=== PATIENT | female | born 1995 | race Caucasian/White ===

== ENCOUNTER 2017-08-13 01:42 | Emergency (ER) | payer OTHER ==
[2017-08-13 02:11] VITALS: BP 150/67; PULSE 106; TEMP 98.4; BMI 31.1
[2017-08-13] MEDS ORDERED: METOCLOPRAMIDE HCL INJECTION 10 MG/2 ML VIAL IVPUSH ONE (02:53)
[2017-08-13] MEDS ORDERED: SODIUM CHLORIDE 1,000 ML IV STA (02:53)
--- NOTE | 2017-08-13 02:53 | PDOC ---
History of Present Illness - History of Present Illness Initial Comments: 08/13/17 02:53 The patient is a 22 year old female who is approximately 33 weeks who presents to the ED complaining of 2 days of low-grade fever, body aches, malaise , nasal congestion, and cough. Also reports associated post-tussive vomiting. She was cleared by L&d prior to presenting to the ED. <Melva Henry - Last Filed: 08/13/17 02:53> - General History Source: Patient <[email or web address] - Last Filed: 08/13/17 19:15> - General Chief Complaint: Cold Symptoms Stated Complaint: FLU LIKE SYMPTOMS/ 33 WEEKS Time Seen by Provider: 08/13/17 02:52 Past History <Melva Henry - Last Filed: 08/13/17 02:53> - Past Medical History Cardiac Disorders: Yes (Pericarditis) COPD: No - Reproductive History (#): 2 Para: 1 Therapeutic (s) & number: Yes - Immunization History Immunization Up to Date: Yes - Suicide/Smoking/Psychosocial Hx Smoking History: Never smoked Have you smoked in the past 12 months: No Number of Cigarettes Smoked Daily: 4 Information on smoking cessation initiated: No Hx Alcohol Use: No Drug/Substance Use Hx: No Substance Use Type: None <Lucien Bloom - Last Filed: 08/13/17 19:15> - Past Medical History Allergies/Adverse Reactions: Allergies Allergy/AdvReac Type Severity Reaction Status Date / Time trimethoprim [From Bactrim] Allergy Intermediate Hives Verified 08/13/17 02:03 sulfamethoxazole Allergy Verified 08/13/17 02:03 [From Bactrim] Home Medications: Ambulatory Orders Pnv No.95/Ferrous Fum/Folic AC [ Vitamin Tablet] 1 tab PO DAILY Metoclopramide HCl [Reglan -] 10 mg PO QID #28 tablet 08/13/17 Oseltamivir Phosphate [Tamiflu -] 75 mg PO BID #10 capsule 08/13/17 Review of Systems - Review of Systems Able to Perform ROS?: Yes Comments:: 08/13/17 02:54 GENERAL/CONSTITUTIONAL: No fever or chills. No weakness. HEAD, EYES, EARS, NOSE AND THROAT: No change in vision. No ear pain or discharge. No sore throat. CARDIOVASCULAR: No chest pain or shortness of breath. RESPIRATORY: No cough, wheezing, or hemoptysis. GASTROINTESTINAL: No nausea, vomiting, diarrhea or constipation. GENITOURINARY: No dysuria, frequency, or change in urination. MUSCULOSKELETAL: No joint or muscle swelling or pain. No neck or back pain. SKIN: No rash NEUROLOGIC: No headache, vertigo, loss of consciousness, or change in strength/ sensation. ENDOCRINE: No increased thirst. No abnormal weight change. HEMATOLOGIC/LYMPHATIC: No anemia, easy bleeding, or history of blood clots. ALLERGIC/IMMUNOLOGIC: No hives or skin allergy. <Melva Henry - Last Filed: 08/13/17 02:53> *Physical Exam - Vital Signs Last Vital Signs Temp Pulse Resp BP Pulse Ox 98.4 F 106 H 20 150/67 100 08/13/17 02:04 08/13/17 02:04 08/13/17 02:04 08/13/17 02:04 08/13/17 02:04 - Physical Exam Comments: 08/13/17 02:54 GENERAL: Awake, alert, and fully oriented. Mildly anxious appearing. HEAD: No signs of trauma EYES: PERRLA, EOMI, sclera anicteric, conjunctiva clear ENT: Auricles normal inspection, nares patent. Moist mucosa NECK: Normal ROM, supple, no JVD, or masses LUNGS: Breath sounds equal, clear to auscultation bilaterally. No wheezes, and no crackles HEART: Regular rate and rhythm, normal S1 and S2, no murmurs, rubs or gallops ABDOMEN: +Gravid. Soft, normoactive bowel sounds. No guarding, no rebound. No masses EXTREMITIES: Normal range of motion, no edema. No clubbing or cyanosis. No cords, erythema, or tenderness NEUROLOGICAL: Alert and oriented x 3. Moves all extremities. Face is symmetric. SKIN: Warm, Dry, normal turgor, no rashes or lesions noted. <Melva Henry - Last Filed: 08/13/17 02:53> - Vital Signs Last Vital Signs Temp Pulse Resp BP Pulse Ox 98.4 F 106 H 20 150/67 100 08/13/17 02:04 08/13/17 02:04 08/13/17 02:04 08/13/17 02:04 08/13/17 02:04 <Lucien Bloom - Last Filed: 08/13/17 19:15> ED Treatment Course - LABORATORY CBC & Chemistry Diagram: 08/13/17 03:00 08/13/17 03:00 <Lucien Bloom - Last Filed: 08/13/17 19:15> Medical Decision Making - Medical Decision Making 08/13/17 19:14 Dr. Bloom: The scribe's documentation has been prepared under my direction and personally reviewed by me in its entirery. I confirm that the note above accurately reflects all work, treatment, procedures, and medical decision making performed by me. <Lucien Bloom - Last Filed: 08/13/17 19:15> *DC/Admit/Observation/Transfer - Attestations Scribe Attestion: 08/13/17 02:55 Documentation prepared by Melva Henry, acting as medical assisting instructor for Lucien Bloom DO. <Melva Henry - Last Filed: 08/13/17 02:53> - Discharge Dispostion Admit: No <Lucien Bloom - Last Filed: 08/13/17 19:15> Diagnosis at time of Disposition: Nausea, Influenza - Discharge Dispostion Disposition: HOME Condition at time of disposition: Stable - Prescriptions Prescriptions: Metoclopramide HCl [Reglan -] 10 mg PO QID #28 tablet Oseltamivir Phosphate [Tamiflu -] 75 mg PO BID #10 capsule - Patient Instructions Printed Discharge Instructions: DI for Influenza -- Adult, DI for Nausea -- Adult
[2017-08-13] MEDS ORDERED: ACETAMINOPHEN 325 MG TABLET (FP) PO ONE (02:54)
[2017-08-13] MEDS ORDERED: METOCLOPRAMIDE HCL INJECTION 10 MG/2 ML VIAL ONE (02:56)
[2017-08-13] MEDS ORDERED: ACETAMINOPHEN 325 MG TABLET (FP) ONE (02:56)
[2017-08-13 03:13] LABS: BASO % 0.4 % (0-2.0); EOS % 0.1 % (0-4.5); HEMOGLOBIN 10.5 GM/dL (10.7-15.3); LYMPH % 16.6 % (8-40); MCHC 33.8 g/dl (32.0-36.0); MEAN CELL VOLUME 85.8 fl (80-96); MEAN PLT VOLUME 7.5 fl (7.5-11.1); MONO % 8.7 % (3.8-10.2); NEUT % 74.2 % (42.8-82.8); PLATELET COUNT 252 K/MM3 (134-434); RBC 3.61 M/mm3 (3.60-5.2); RDW 14.7 % (11.6-15.6); WHITE BLOOD COUNT 6.9 K/mm3 (4.0-10.0)
[2017-08-13 03:23] LABS: URINE APPEARANCE CLOUDY; URINE BILIRUBIN NEGATIVE (NEGATIVE); URINE BLOOD NEGATIVE (NEGATIVE); URINE COLOR YELLOW; URINE GLUCOSE (UA) NEGATIVE (NEGATIVE); URINE KETONE 2+ (NEGATIVE); URINE LEUK ESTERASE TRACE (NEGATIVE); URINE NITRITE NEGATIVE (NEGATIVE); URINE PROTEIN 1+ (NEGATIVE)
[2017-08-13 03:26] LABS: EPI CELLS MODERATE /HPF (FEW); URINE BACTERIA RARE /hpf (NONE SEEN); URINE MUCUS RARE
[2017-08-13 03:38] LABS: ALBUMIN 2.6 g/dl (3.4-5.0); ALK PHOS 233 U/L (45-117); ANION GAP 12 (8-16); BILIRUBIN,TOTAL 0.4 mg/dL (0.2-1.0); CALCIUM 7.8 mg/dL (8.5-10.1); CHLORIDE 102 mmol/L (98-107); CO2 23 mmol/L (21-32); CREATININE 0.4 mg/dL (0.55-1.02); GLUCOSE,RANDOM 83 mg/dL (74-106); SGOT/AST 22 U/L (15-37); SGPT/ALT 22 U/L (12-78); SODIUM 137 mmol/L (136-145); TOT PROT 5.9 g/dl (6.4-8.2)
[2017-08-13 03:42] LABS: BLOOD UREA NITROGEN 2 mg/dL (7-18); POTASSIUM 2.9 mmol/L (3.5-5.1)
[2017-08-13] MEDS ORDERED: POTASSIUM CHLORIDE ORAL LIQUID 20 MEQ/15 ML PO ONE (03:52)
[2017-08-13] MEDS ORDERED: OSELTAMIVIR PHOSPHATE 75 MG CAPSULE PO ONE (04:01)
[2017-08-13] MEDS ORDERED: OSELTAMIVIR PHOSPHATE 75 MG CAPSULE ONE (04:02)
[2017-08-13] MEDS ORDERED: POTASSIUM CHLORIDE ORAL LIQUID 20 MEQ/15 ML ONE (04:02)
== END 2017-08-13 04:59 | disposition home or self-care (01) ==
LOC: JER 01:42
PROC: 3E033GC Introduction of Other Therapeutic Substance into Peripheral Vein, Percutaneous Approach (ICD-10-PCS; principal; 2017-08-13)
PROC: 3E0337Z Introduction of Electrolytic and Water Balance Substance into Peripheral Vein, Percutaneous Approach (ICD-10-PCS; 2017-08-13)
DX: O26.893 Other specified pregnancy related conditions, third trimester (principal); Z3A.33 33 weeks gestation of pregnancy; J11.1 Influenza due to unidentified influenza virus with other respiratory manifestations; R11.0 Nausea
CPT/HCPCS: 36415; 80053; 81003; 81015; 85025; 87086; 99281-25